=== PATIENT | male | born 1985 | race Two or more races ===

== ENCOUNTER 2021-05-24 15:07 | Emergency (ER) | payer SELFPAY ==
[~2021-05-24] VITALS: Ht 177.8 cm; Wt 86.2 kg
[2021-05-24] MEDS ORDERED: TETANUS-DIPTH-ACEL PERTUSSIS 0.5ML SYR Tdap IM ONE (15:30)
[2021-05-24] MEDS ORDERED: ceFAZolin 1GM/50ML 50 ML IV ONE (16:45)
[2021-05-24 17:48] VITALS: BP 131/71
== END 2021-05-24 18:07 | disposition short-term general hospital (02) ==
LOC: ER 15:07 → EDBD 15:07 → ER 18:07
DX: S02.32XB Fracture of orbital floor, left side, initial encounter for open fracture (principal); S02.0XXA Fracture of vault of skull, initial encounter for closed fracture; S06.5X0A Traumatic subdural hemorrhage without loss of consciousness, initial encounter; W22.8XXA Striking against or struck by other objects, initial encounter; Y93.89 Activity, other specified; Y99.8 Other external cause status; Y92.89 Other specified places as the place of occurrence of the external cause
CPT/HCPCS: 70450; 70486; 90471; 90715; 96365; 99285; J0690